=== PATIENT | male | born 1995 | race Caucasian/White ===

== ENCOUNTER 2024-08-06 04:14 | Inpatient (IN) | payer SELFPAY ==
[2024-08-06] VITALS (7 sets, daily range): BP systolic 126–155; BP diastolic 71–91; PULSE 53–84; RESP 16–20; TEMP 36.6–36.9; O2SAT 95–100; BMI 15.8
--- NOTE | 2024-08-06 04:29 | ED_ITS ---
Documented by User: Darryn Madrid DO 08/06/24 05:14 HPI - Altered Mental Status 2 General: Chief Complaint: Altered Mental Status Stated Complaint: 96 Time Seen by Provider: 08/06/24 04:15 History of Present Illness: Patient brought in by police for agitation and aggressiveness and altered mental status. Patient does admit to smoking weed and doing dabs tonight and is under a lot of stress because he works 2 jobs. Patient denied being homicidal or suicidal when expressly asked. The patient is calm and cooperative. The please officer said that his mood will change between being calm and cooperative and being aggressive and agitated to the point of starting to come at him to the point he put him in handcuffs and said in a car where he was banging his head on the window. He also said that his mood flipped and he became very preach he acting and talking about God wanting to pray for everybody that officer stated that the patient said that he wants to kill pedophile in his neighborhood. Related Data Home Medications Medication Instructions Recorded Confirmed No Known Home Medications 08/06/24 08/06/24 Review of Systems 2 General: Reports: 10 or more systems reviewed and unremarkable except in HPI and below Physical Exam 2 Const: COMMON NORMALS: no acute distress, average body habitus, patient oriented x3, no limitations, healthy appearing, alert and well nourished HENMT: COMMON NORMALS: normocephalic, atraumatic, hearing grossly normal bilaterally, external ears normal, Normal external nose present and moist oral mucous membranes HEAD & SCALP: normocephalic and atraumatic NOSE: Normal external nose present EXTERNAL EAR: Yes external ears normal Neck/C-Spine: COMMON NORMALS: no JVD Chest: COMMONS NORMALS: normal inspection of the chest and normal palpation of entire chest wall Resp: COMMON NORMALS: normal respiratory effort, No retractions, No use of accessory muscles and clear to auscultation bilaterally AUSCULTATION: clear to auscultation bilaterally Cardio: COMMON NORMALS: no JVD, regular rate, regular rhythm, S1 normal heart sound present, S2 normal heart sound present, No gallops present (Cardio), No clicks present (Cardio), No murmurs present (Cardio) and No rub (Cardio) R ATE: regular rate RHYTHM: regular rhythm HEART SOUNDS: S1 normal heart sound present and S2 normal heart sound present GI: COMMON NORMALS: Normal to inspection, nondistended, normoactive bowel sounds present, Soft to palpation, non-tender, No hepatosplenomegaly present and no masses PALPATION: Yes Soft to palpation and Yes No hepatosplenomegaly present Neuro: COMMON NORMALS: patient oriented x3 SENSORIUM/ORIENTATION: Yes alert Course 2 Vital Signs: Vital signs: Vital Signs Temperature 98.4 F 08/06/24 04:15 Pulse Rate 80 08/06/24 06:00 Respiratory Rate 16 08/06/24 06:00 Blood Pressure 145/82 08/06/24 06:00 Pulse Oximetry 96 08/06/24 06:00 MDM - Altered Mental Status Lab Data 08/06/24 05:02 08/06/24 05:02 Laboratory Results WBC 6.75 10^3/uL (3.29-11.43) 08/06/24 05:02 RBC 4.55 10^6/uL (3.85-5.65) 08/06/24 05:02 Hgb 14.30 g/dL (11.27-16.99) 08/06/24 05:02 Hct 40.2 % (37-53) 08/06/24 05:02 MCV 88.4 fl (82-101) 08/06/24 05:02 MCH 31.4 pg (27-33) 08/06/24 05:02 MCHC 35.6 g/dL (30-55) 08/06/24 05:02 RDW 12.0 % (12.1-15.1) L 08/06/24 05:02 Plt Count 275 10^3/cmm (157-399) 08/06/24 05:02 MPV 9.4 fL (7.4-10.4) 08/06/24 05:02 Neut % (Auto) 78.2 % 08/06/24 05:02 Lymph % (Auto) 11.9 % 08/06/24 05:02 Sharkey % (Auto) 8.3 % 08/06/24 05:02 Eos % (Auto) 0.1 % 08/06/24 05:02 Baso % (Auto) 1.2 % 08/06/24 05:02 Neut # (Auto) 5.28 10^3/uL (1.8-7.7) 08/06/24 05:02 Lymph # (Auto) 0.8 10^3/uL (0.8-4.8) 08/06/24 05:02 Sharkey # (Auto) 0.6 10^3/uL (0.2-0.9) 08/06/24 05:02 Eos # (Auto) 0.0 10^3/uL (0.0-0.8) 08/06/24 05:02 Baso # (Auto) 0.1 10^3/uL (0.0-0.1) 08/06/24 05:02 Nucleated RBC % (auto) 0 % 08/06/24 05:02 Nucleated RBCs # 0.0 /100WBC 08/06/24 05:02 Sodium 138 mmol/L (136-145) 08/06/24 05:02 Potassium 3.4 mmol/L (3.5-5.1) L 08/06/24 05:02 Chloride 102 mmol/L (98-107) 08/06/24 05:02 Carbon Dioxide 22 mmol/L (22-29) 08/06/24 05:02 Anion Gap 17.4 (5-19) 08/06/24 05:02 BUN 12 mg/dL (6-20) 08/06/24 05:02 Creatinine 0.8 mg/dL (0.7-1.2) 08/06/24 05:02 GFR Calculation 113.5 mL/min (90-130) 08/06/24 05:02 Glucose 128 mg/dL (65-115) H 08/06/24 05:02 Calculated Osmolality 287 mOsm/kg (285-295) 08/06/24 05:02 Calcium 8.8 mg/dL (8.5-10.5) 08/06/24 05:02 Total Bilirubin 1.5 mg/dL (0.15-1.2) H 08/06/24 05:02 AST 47 U/L (0-40) H 08/06/24 05:02 ALT 22 U/L (0-41) 08/06/24 05:02 Alkaline Phosphatase 52 U/L (40-130) 08/06/24 05:02 Total Protein 6.8 g/dL (6.6-8.7) 08/06/24 05:02 Albumin 4.6 g/dL (3.5-5.2) 08/06/24 05:02 Globulin 2.2 g/dL (1.3-4.6) 08/06/24 05:02 Urine Color Yellow (Yellow) 08/06/24 06:20 Urine Appearance Clear (CLEAR) 08/06/24 06:20 Urine pH 6.5 (5-7) 08/06/24 06:20 Ur Specific [place] 1.006 (1.005-1.030) 08/06/24 06:20 Urine Protein Negative (Negative) 08/06/24 06:20 Urine Glucose (UA) Negative (Normal) 08/06/24 06:20 Urine Ketones Negative (Negative) 08/06/24 06:20 Urine Blood Negative (Negative) 08/06/24 06:20 Urine Nitrate Negative (Negative) 08/06/24 06:20 Urine Bilirubin Negative (Negative) 08/06/24 06:20 Urine Urobilinogen 0.2 mg/dL (Negative) 08/06/24 06:20 Ur Leukocyte Esterase Negative (Negative) 08/06/24 06:20 Amorphous Sediment Not Reportable 08/06/24 06:20 Salicylates 0.5 mg/dL (3-10) L 08/06/24 05:02 Urine Opiates Screen Negative ng/mL (Negative) 08/06/24 06:20 Acetaminophen < 5.0 ug/mL (10-30) L 08/06/24 05:02 Ur Barbiturates Screen Negative ng/mL (Negative) 08/06/24 06:20 Ur Phencyclidine Scrn Negative ng/mL (Negative) 08/06/24 06:20 Ur Amphetamines Screen Negative ng/mL (Negative) 08/06/24 06:20 U Benzodiazepines Scrn Negative ng/mL (Negative) 08/06/24 06:20 Urine Cocaine Screen Negative ng/mL (Negative) 08/06/24 06:20 U Marijuana (THC) Screen Positive ng/mL (Negative) H 08/06/24 06:20 Ethyl Alcohol < 10 mg/dL (0-10) 08/06/24 05:02 Discharge Plan Discharge Patient Disposition: Admitted As Inpatient Admit Provider: Deon Rodríguez Clinical Impression: Acute psychosis, Homicidal ideation Condition: Stable Sign Out Sign Out Data: Patient Sign Out occurred on 08/06/24 at 05:54. Patient's care was discussed, and care was transferred from Darryn Madrid DO to Chai Germain DO. Coding Level of Care Code ED [employer] Claim Examiner for [employer] Documented by User: Chai Germain DO 08/06/24 10:39 HPI - Altered Mental Status 2 General: Chief Complaint: Altered Mental Status Stated Complaint: 96 Time Seen by Provider: 08/06/24 04:15 Related Data Home Medications Medication Instructions Recorded Confirmed No Known Home Medications 08/06/24 08/06/24 Course 2 Vital Signs: Vital signs: Vital Signs Temperature 98.4 F 08/06/24 04:15 Pulse Rate 80 08/06/24 06:00 Respiratory Rate 16 08/06/24 06:00 Blood Pressure 145/82 08/06/24 06:00 Pulse Oximetry 96 08/06/24 06:00 MDM - Altered Mental Status Medical Decision Making Care assumed at change of shift. 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 While enforcement was called there was a little bit of confrontation with them. Ultimately EMS was called because of his behavior EMS did not feel comfortable bringing him to the emergency room was transported here by 1 enforcement. 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 When I asked what it happened that he was brought to the emergency room he states he was just working doing God's work. He does admit to having used marijuana. Reviewed case with Dr. Rodríguez will admit from 96-hour hold for acute psychosis and homicidal ideation Lab Data 08/06/24 05:02 08/06/24 05:02 Laboratory Results WBC 6.75 10^3/uL (3.29-11.43) 08/06/24 05:02 RBC 4.55 10^6/uL (3.85-5.65) 08/06/24 05:02 Hgb 14.30 g/dL (11.27-16.99) 08/06/24 05:02 Hct 40.2 % (37-53) 08/06/24 05:02 MCV 88.4 fl (82-101) 08/06/24 05:02 MCH 31.4 pg (27-33) 08/06/24 05:02 MCHC 35.6 g/dL (30-55) 08/06/24 05:02 RDW 12.0 % (12.1-15.1) L 08/06/24 05:02 Plt Count 275 10^3/cmm (157-399) 08/06/24 05:02 MPV 9.4 fL (7.4-10.4) 08/06/24 05:02 Neut % (Auto) 78.2 % 08/06/24 05:02 Lymph % (Auto) 11.9 % 08/06/24 05:02 Sharkey % (Auto) 8.3 % 08/06/24 05:02 Eos % (Auto) 0.1 % 08/06/24 05:02 Baso % (Auto) 1.2 % 08/06/24 05:02 Neut # (Auto) 5.28 10^3/uL (1.8-7.7) 08/06/24 05:02 Lymph # (Auto) 0.8 10^3/uL (0.8-4.8) 08/06/24 05:02 Sharkey # (Auto) 0.6 10^3/uL (0.2-0.9) 08/06/24 05:02 Eos # (Auto) 0.0 10^3/uL (0.0-0.8) 08/06/24 05:02 Baso # (Auto) 0.1 10^3/uL (0.0-0.1) 08/06/24 05:02 Nucleated RBC % (auto) 0 % 08/06/24 05:02 Nucleated RBCs # 0.0 /100WBC 08/06/24 05:02 Sodium 138 mmol/L (136-145) 08/06/24 05:02 Potassium 3.4 mmol/L (3.5-5.1) L 08/06/24 05:02 Chloride 102 mmol/L (98-107) 08/06/24 05:02 Carbon Dioxide 22 mmol/L (22-29) 08/06/24 05:02 Anion Gap 17.4 (5-19) 08/06/24 05:02 BUN 12 mg/dL (6-20) 08/06/24 05:02 Creatinine 0.8 mg/dL (0.7-1.2) 08/06/24 05:02 GFR Calculation 113.5 mL/min (90-130) 08/06/24 05:02 Glucose 128 mg/dL (65-115) H 08/06/24 05:02 Calculated Osmolality 287 mOsm/kg (285-295) 08/06/24 05:02 Calcium 8.8 mg/dL (8.5-10.5) 08/06/24 05:02 Total Bilirubin 1.5 mg/dL (0.15-1.2) H 08/06/24 05:02 AST 47 U/L (0-40) H 08/06/24 05:02 ALT 22 U/L (0-41) 08/06/24 05:02 Alkaline Phosphatase 52 U/L (40-130) 08/06/24 05:02 Total Protein 6.8 g/dL (6.6-8.7) 08/06/24 05:02 Albumin 4.6 g/dL (3.5-5.2) 08/06/24 05:02 Globulin 2.2 g/dL (1.3-4.6) 08/06/24 05:02 Urine Color Yellow (Yellow) 08/06/24 06:20 Urine Appearance Clear (CLEAR) 08/06/24 06:20 Urine pH 6.5 (5-7) 08/06/24 06:20 Ur Specific [place] 1.006 (1.005-1.030) 08/06/24 06:20 Urine Protein Negative (Negative) 08/06/24 06:20 Urine Glucose (UA) Negative (Normal) 08/06/24 06:20 Urine Ketones Negative (Negative) 08/06/24 06:20 Urine Blood Negative (Negative) 08/06/24 06:20 Urine Nitrate Negative (Negative) 08/06/24 06:20 Urine Bilirubin Negative (Negative) 08/06/24 06:20 Urine Urobilinogen 0.2 mg/dL (Negative) 08/06/24 06:20 Ur Leukocyte Esterase Negative (Negative) 08/06/24 06:20 Amorphous Sediment Not Reportable 08/06/24 06:20 Salicylates 0.5 mg/dL (3-10) L 08/06/24 05:02 Urine Opiates Screen Negative ng/mL (Negative) 08/06/24 06:20 Acetaminophen < 5.0 ug/mL (10-30) L 08/06/24 05:02 Ur Barbiturates Screen Negative ng/mL (Negative) 08/06/24 06:20 Ur Phencyclidine Scrn Negative ng/mL (Negative) 08/06/24 06:20 Ur Amphetamines Screen Negative ng/mL (Negative) 08/06/24 06:20 U Benzodiazepines Scrn Negative ng/mL (Negative) 08/06/24 06:20 Urine Cocaine Screen Negative ng/mL (Negative) 08/06/24 06:20 U Marijuana (THC) Screen Positive ng/mL (Negative) H 08/06/24 06:20 Ethyl Alcohol < 10 mg/dL (0-10) 08/06/24 05:02 No radiology studies performed this visit Discharge Plan Discharge Patient Disposition: Admitted As Inpatient Admit Provider: Deon Rodríguez Clinical Impression: Acute psychosis, Homicidal ideation Condition: Stable Sign Out Sign Out Data: Patient Sign Out occurred on 08/06/24 at 05:54. Patient's care was discussed, and care was transferred from Darryn Madrid DO to Chai Germain DO. Coding Level of Care Code ED [employer] Claim Examiner for Saima Lawson
[2024-08-06 05:07] LABS: Basophils # 0.1 10^3/uL (0.0-0.1); Basophils % 1.2 %; Eosinophils % 0.1 %; Hematocrit 40.2 % (37-53); Lymphocytes # 0.8 10^3/uL (0.8-4.8); Lymphocytes % 11.9 %; Mean Corpuscular HGB Conc 35.6 g/dL (30-55); Mean Corpuscular Hemoglobin 31.4 pg (27-33); Mean Corpuscular Volume 88.4 fl (82-101); Mean Platelet Volume 9.4 fL (7.4-10.4); Monocytes # 0.6 10^3/uL (0.2-0.9); Monocytes % 8.3 %; Neutrophils # 5.28 10^3/uL (1.8-7.7); Neutrophils % 78.2 %; Nucleated Red Blood Cells % 0 %; Platelet Count 275 10^3/cmm (157-399); Red Blood Count 4.55 10^6/uL (3.85-5.65); White Blood Count 6.75 10^3/uL (3.29-11.43)
[2024-08-06] MEDS: sodium chloride 0.9% 1,000 ML 999 ML IV (05:07)
[2024-08-06 05:26] LABS: Alanine Aminotransferase 22 U/L (0-41); Albumin Level 4.6 g/dL (3.5-5.2); Alkaline Phosphatase 52 U/L (40-130); Anion Gap 17.4 (5-19); Aspartate Amino Transferase 47 U/L (0-40); Blood Urea Nitrogen 12 mg/dL (6-20); Calcium 8.8 mg/dL (8.5-10.5); Carbon Dioxide 22 mmol/L (22-29); Chloride 102 mmol/L (98-107); Creatinine Clr Calc Pharmacy 103.9481; Globulin 2.2 g/dL (1.3-4.6); Glomerular Filtration Rate 113.5 mL/min (90-130); Glucose 128 mg/dL (65-115); Osmolality Calculated 287 mOsm/kg (285-295); Potassium 3.4 mmol/L (3.5-5.1); Salicylate 0.5 mg/dL (3-10); Sodium 138 mmol/L (136-145); Total Bilirubin 1.5 mg/dL (0.15-1.2); Total Protein 6.8 g/dL (6.6-8.7)
[2024-08-06 05:31] LABS: Acetaminophen < 5.0 ug/mL (10-30); Alcohol Level < 10 mg/dL (0-10)
[2024-08-06 06:31] LABS: Charge for UA Resulting for Rev
[2024-08-06 06:33] LABS: Bilirubin Urine Negative (Negative); Blood Urine Negative (Negative); Glucose Urine UA Negative (Normal); Ketones Urine Negative (Negative); Leukocyte Esterase Urine Negative (Negative); Nitrate Urine Negative (Negative); Protein Urine Negative (Negative); Specific Gravity, Urine 1.006 (1.005-1.030); Urine Appearance Clear (CLEAR); Urine Color Yellow (Yellow); Urobilinogen Urine 0.2 mg/dL (Negative); pH Urine 6.5 (5-7)
[2024-08-06 06:48] LABS: Amphetamines Screen Urine Negative (Negative); Barbiturates Screen Urine Negative (Negative); Benzodiazepines Screen Urine Negative (Negative); Cocaine Screen Urine Negative (Negative); Opiate Screen Urine Negative (Negative); PCP Screen Urine Negative (Negative); THC Screen Urine Positive (Negative)
--- NOTE | 2024-08-06 07:32 | PC.PHAR ---
No external medications found. Mom does not answer phone-left message to ask about meds, pharmacy, allergies. will follow up
--- NOTE | 2024-08-06 10:40 | PC.NURSE ---
pt resting in room 9, calm and cooperative. respirations even and unlabored. pt IV removed, catheter intact.
--- NOTE | 2024-08-06 12:02 | PC.NURSE ---
Patient arrived to the unit with security at 1109. Patient cooperative during assessment. Patient denies suicidal ideation, but endorses previous suicidal ideation years ago when his cheated on him. Patient appears to be psychotic, with shinto grandiose thoughts. Patient denies drug aside from marijuana use.
[2024-08-06] MEDS: nicotine 2 mg Gum BUCCAL ×2 (16:54→20:47)
--- NOTE | 2024-08-06 18:58 | PC.NURSE ---
96 hr rights reviewed with patient @1050 with assistance of [facility] seal delivery vehicle officer Casey. No verbalized questions or concerns to HS at this time. Patient copy was left with patient.
[2024-08-07 06:00] VITALS: BP 119/74; PULSE 58; RESP 18; TEMP 36.7; O2SAT 99
--- NOTE | 2024-08-07 06:35 | W.PM.NPUH&PS ---
Providers/Chief Complaint Admitting Physician: Deon Rodírguez MD Chief Complaint: 96 HPI NPU History of Present Illness Aurelio Neville is a 29 year old male who presented to the emergency department with the following report: Chief Complaint: Altered Mental Status Stated Complaint: 96 Time Seen by Provider: 08/06/24 04:15 History of Present Illness: Patient brought in by police for agitation and aggressiveness and altered mental status. Patient does admit to smoking weed and doing dabs tonight and is under a lot of stress because he works 2 jobs. Patient denied being homicidal or suicidal when expressly asked. The patient is calm and cooperative. The please officer said that his mood will change between being calm and cooperative and being aggressive and agitated to the point of starting to come at him to the point he put him in handcuffs and said in a car where he was banging his head on the window. He also said that his mood flipped and he became very preach he acting and talking about God wanting to pray for everybody that officer stated that the patient said that he wants to kill pedophile in his neighborhood. He was admitted to the neuropsychiatric unit for definitive treatment of those issues. He is unknown to [facility] psychiatry through inpatient or outpatient services. His UDS was positive for cannabis and he presented reporting: Chief complaint The patient came to the hospital because he feels a strong calling to work for God, which has led to some disturbances in his life. History of the present complaint The patient presented with a strong confucianism conviction, expressing a desire to work for God and to become a Baptism therapist. He reported no previous psychiatric hospitalizations or therapy sessions. He has not been on any medication for mental health, but admitted to using cannabis occasionally to help with his feelings. He reported that cannabis makes him feel too high and he expressed a desire to cut back on its use. The patient also reported a history of tobacco use, smoking about two cigarettes a day, but expressed a desire to quit. He denied any alcohol use and use of other drugs such as cocaine, methamphetamine, and opiates. He has never been to a rehab and has no history of DUI charges. The patient reported a past experience of depression following a divorce. He described the divorce as the worst thing in his life as he had waited a long time to get and thought he had done it the right way. He reported that he discovered his had cheated on him three months after their wedding, which led to the end of their marriage. He moved in with a friend in [place] after the divorce and turned to christianity for solace. The patient denied any issues with anxiety, paranoia, hearing voices, or seeing things. He also denied having nightmares or flashbacks about bad things that have happened in the past. He described himself as a people person and expressed a desire to help others. The patient reported a desire to improve his life and take care of his family. He recently got a job at a [place] [employer] home and moved to [place] to live with his mother and stepfather. He expressed frustration about being misunderstood when he talks about his confucianism beliefs, which has led to him being picked up by the police for disturbing the peace. The patient reported no physical medical issues, no history of broken bones, and only one surgery to remove his appendix a couple of years ago. He denied any current thoughts of self-harm or harm to others and denied feeling paranoid. The patient was offered a small dose of Abilify to help manage his symptoms. He initially expressed hesitation about taking medication, citing a belief that cannabis is God's medicine and that other medications are man-made . However, after some discussion, he agreed to try the medication. Mental health history The patient has never been in a psychiatric hospital before and has never been on medication for mental health. He has tried cannabis to help with his feelings. He has never been to a therapist but expresses a desire to do so. He has a history of depression following a divorce. Social history The patient has a history of cannabis and tobacco use, smoking about two cigarettes a day. He does not consume alcohol. He has a job at a [place] [employer] home and enjoys cooking. He has a strong Baptism janice and feels a calling to [employer]. He lives with his mother and stepfather. Meds NPU Home Medications Medication Instructions Recorded Confirmed Last Taken Type No Known Home Medications 08/06/24 08/06/24 Unknown History Allergies Allergy/AdvReac Type Severity Reaction Status Date / Time No Known Allergies Allergy Verified 08/06/24 12:56 Mental Status Exam MSE Comments: This is an underweight, cachectic white male, in hospital scrubs, with limited grooming, and intense eye contact. No abnormal movements except for mild psychomotor retardation. Mostly cooperative with exam in significant distress. Speech was slightly decreased rate and volume. Occasionally having whispering towards having. Mood described as okay; affect subdued. Thought process, linear. Thought content: patient denied any suicidal or homicidal ideation, there were no delusions reported but paranoia, grandiose and some bizarre delusions noted, patient denied any auditory or visual hallucinations but appeared at times to be attending to internal stimuli. The patient does not report progress follow any suicidal risk, thoughts of violence or aggression against others, restlessness, irritability, visual hallucinations, or paranoia. He does experience occasional anxiety. He does not report hearing voices or seeing things. He does not have nightmares or flashbacks about bad things that have happened in the past. Attention, concentration, and memory appear limited but were not formally tested. He is alert and oriented to person. Insight and judgment and impulse control are impaired. Vitals/I&O/Wt Last Vital Signs Temp 98.2 F 08/06/24 13:47 Pulse 61 08/06/24 19:54 Resp 18 08/06/24 19:54 BP 126/77 08/06/24 19:54 Pulse Ox 100 08/06/24 19:54 O2 Del Method Room Air 08/06/24 13:47 08/06/24 08/06/24 08/07/24 14:59 22:59 06:59 Intake Total 1000 / 1000 Balance 1000 / 1000 Weight last 48 hrs Weight 54.431 kg Data NPU 08/06/24 05:02 08/06/24 05:02 A&P Assessment and plan (1) Acute psychosis: (2) Homicidal ideation: (3) Cannabis use disorder, severe, dependence: (4) Cannabis-induced psychotic disorder with delusions: Plan This is a 29-year-old white male who presented denying significant mental health history or treatment but does report similar episodes and marijuana use with possible sequela of being hyper confucianism. The patient appears to be struggling with his strong confucianism beliefs and how they intersect with his daily life and how these beliefs seem to get heightened or intensified sometimes when he smokes weed. He has a history of depression and occasional anxiety. He has a history of substance use, specifically cannabis and tobacco. 1. Consider antipsychotic. Will start Abilify 5 mg p.o. daily and increase as indicated. 2. Continue every 15 minute checks for safety. 3. Encourage individual, group and milieu therapies. 4. Obtain collateral information on what his baseline actually is. 5. Encourage sober living treatment after discharge at the highest level of care to which he is willing to commit. Involuntary Hold Information 96 Hour Hold: 96 Hour Involuntary Admission: Yes 96 Hour Hold Ending Date: 08/12/24 96 Hour Hold Ending Time: 10:00 Attestations NPU Medical Necessity Statement*: Inpatient hospitalization is medically necessary and the clinically appropriate intervention at this time. We will monitor medication to make changes as indicated. Patient will be in the hospital for over two midnights. His likely length of stay 5-7 days. Coding Level of Care Code Acute Code for [facility] Diagnoses Acute psychosis F23 Homicidal ideation R45.850 Cannabis use disorder, severe, dependence F12.20 Cannabis-induced psychotic disorder with delusions F12.950
[2024-08-07] MEDS: nicotine 2 mg Gum BUCCAL ×4 (09:50→18:30)
[2024-08-07] MEDS: ARIPiprazole 10 mg Tablet 5 MG PO (13:09)
[2024-08-07 14:00] VITALS: BP 129/79; PULSE 66; RESP 16; TEMP 36.8; O2SAT 100
[2024-08-07 19:46] VITALS: BP 131/86; PULSE 62; RESP 18; TEMP 36.4; O2SAT 100
[2024-08-08 06:00] VITALS: BP 119/77; PULSE 82; RESP 18; TEMP 36.5; O2SAT 99
[2024-08-08] MEDS: ARIPiprazole 10 mg Tablet 5 MG PO (08:11)
[2024-08-08] MEDS: nicotine 21 mg Patch 1 PATCH TRANSDERMA (08:12)
--- NOTE | 2024-08-08 09:00 | P.NPUPN_ITS ---
Subjective NPU 2 Subjective: Patient presented today reporting that he is doing okay with the Abilify. We discussed finding out that his brother takes it is well and that it is very helpful for him. He reports that he did not have any problem with the way he was feeling and denied any specific side effects to the medication. He continues to have some hyper oriental orthodox behaviors per staff reports and direct observation. We discussed the likelihood of increasing the Abilify to 10 mg tomorrow. Mental Status Exam 2 MSE Comments: This is an underweight, cachectic white male, in hospital scrubs, with limited grooming, and intense eye contact. No abnormal movements except for mild psychomotor retardation. Mostly cooperative with exam in significant distress. Speech was slightly decreased rate and volume. Occasionally having whispering towards the keny or God. Mood described as okay; affect subdued. Thought process, linear. Thought content: patient denied any suicidal or homicidal ideation, there were no delusions reported but paranoia, grandiose and some bizarre delusions noted, patient denied any auditory or visual hallucinations but appeared at times to be attending to internal stimuli. The patient does not report progress follow any suicidal risk, thoughts of violence or aggression against others, restlessness, irritability, visual hallucinations, or paranoia. He does experience occasional anxiety. He does not report hearing voices or seeing things. He does not have nightmares or flashbacks about bad things that have happened in the past. Attention, concentration, and memory appear limited but were not formally tested. He is alert and oriented to person. Insight and judgment and impulse control are impaired. Vitals/I&O/Wt Last Vital Signs Temp 97.7 F 08/08/24 06:00 Pulse 82 08/08/24 06:00 Resp 18 08/08/24 06:00 BP 119/77 08/08/24 06:00 Pulse Ox 99 08/08/24 06:00 O2 Del Method Room Air 08/08/24 06:00 Weight last 48 hrs Weight 57.209 kg Data NPU 08/06/24 05:02 08/06/24 05:02 A&P Assessment and plan (1) Acute psychosis: (2) Homicidal ideation: (3) Cannabis use disorder, severe, dependence: (4) Cannabis-induced psychotic disorder with delusions: Plan This is a 29-year-old white male who presented denying significant mental health history or treatment but does report similar episodes and marijuana use with possible sequela of being hyper oriental orthodox. The patient appears to be struggling with his strong oriental orthodox beliefs and how they intersect with his daily life and how these beliefs seem to get heightened or intensified sometimes when he smokes weed. He has a history of depression and occasional anxiety. He has a history of substance use, specifically cannabis and tobacco. 1. Consider antipsychotic. Started Abilify 5 mg p.o. daily and increase as indicated. 2. Continue every 15 minute checks for safety. 3. Encourage individual, group and milieu therapies. 4. Obtain collateral information on what his baseline actually is. 5. Encourage sober living treatment after discharge at the highest level of care to which he is willing to commit. Involuntary Hold Information 2 96 Hour Hold: 96 Hour Involuntary Admission: Yes 96 Hour Hold Ending Date: 08/12/24 96 Hour Hold Ending Time: 10:00 Attestations NPU 2 Medical Necessity Statement*: Inpatient hospitalization is medically necessary and the clinically appropriate intervention at this time. We will monitor medication to make changes as indicated.His likely length of stay 5-7 days. Coding Level of Care Code Acute Code for [facility] Fwd Diagnoses Acute psychosis F23 Homicidal ideation R45.850 Cannabis use disorder, severe, dependence F12.20 Cannabis-induced psychotic disorder with delusions F12.950
--- NOTE | 2024-08-08 10:47 | PC.NURSE ---
Pt kneeling down to pray with another pt, pt began to cry, pt reading bible and is calm now.
[2024-08-08 14:00] VITALS: BP 154/93; PULSE 70; RESP 16; TEMP 36.6; O2SAT 100
--- NOTE | 2024-08-08 15:29 | PC.NURSE ---
Pt has asked this nurse 3 times throughout this shift, if he has taken his medication. Pt was administered medication at 0830 AM.
[2024-08-08 19:59] VITALS: BP 151/89; PULSE 107; RESP 17; TEMP 36.8; O2SAT 99
[2024-08-08] MEDS: trazodone 50 mg Tablet PO (20:03)
[2024-08-09 06:00] VITALS: BP 127/80; PULSE 112; RESP 17; TEMP 36.4; O2SAT 95
[2024-08-09] MEDS: ARIPiprazole 10 mg Tablet PO (08:32)
[2024-08-09] MEDS: nicotine 2 mg Gum BUCCAL ×2 (08:50→19:29)
[2024-08-09] MEDS: ondansetron 4 MG Tablet PO (10:30)
--- NOTE | 2024-08-09 11:14 | PC.NURSE ---
pt mother called stating her concern that Aurelio will be upset when he finds out that his 96hour hold will not be up tomorrow. she is concerned that he might blame her because she had told him it would be up tomorrow. Explained to pt that staff would educate the pt on how the 96 hour hold works in the state of [place]. and that we would educate him in as gentle manner as we could and make pt understand that she did not know the laws pertaining to the 96 hour holds in [place]. Reassured pt mother pt would be ok. but the concern is that the pt states that once out of the hospital pt is stating he will not take any medications. pt states he was happy without medication before coming into the hospital and will be happy again once out of the hospital with out any medication. when asked why pt would stop taking medication pt stated it makes him sleepy, verbal education administered that after taking medication for period of time medication would no longer make him sleepy that pt needs to give the medication a chance even though right now it makes him sleepy. pt mother states yes this is what he is saying to me as well but it is making him sleepy and he does not like that. pt mother asked for supportive employment case manager or director social or doctor to call at their continence.
[2024-08-09 14:00] VITALS: BP 132/89; PULSE 78; RESP 16; TEMP 36.7; O2SAT 98
[2024-08-09 19:18] VITALS: BP 128/81; PULSE 104; RESP 18; TEMP 36.7; O2SAT 98
--- NOTE | 2024-08-09 20:07 | P.NPUPN_ITS ---
Subjective NPU 2 Subjective: Patient presented today reporting that he is doing okay with the increase in medication. He denied any side effects to the medication. He continues to be somewhat disconnected from the hospitalization and how he is interacting per staff reports and direct observation but he denied having any significant concerns about being here at this time. We continued to talk about long-term treatment but he is somewhat ambivalent about the process. Mental Status Exam 2 MSE Comments: This is an underweight, cachectic white male, in hospital scrubs, with limited grooming, and intense eye contact. No abnormal movements except for mild psychomotor retardation. Mostly cooperative with exam in significant distress. Speech was slightly decreased rate and volume. Occasionally having whispering towards the keny or God. Mood described as okay; affect subdued. Thought process, linear. Thought content: patient denied any suicidal or homicidal ideation, there were no delusions reported but paranoia, grandiose and some bizarre delusions noted, patient denied any auditory or visual hallucinations but appeared at times to be attending to internal stimuli. The patient does not report progress follow any suicidal risk, thoughts of violence or aggression against others, restlessness, irritability, visual hallucinations, or paranoia. He does experience occasional anxiety. He does not report hearing voices or seeing things. He does not have nightmares or flashbacks about bad things that have happened in the past. Attention, concentration, and memory appear limited but were not formally tested. He is alert and oriented to person. Insight and judgment and impulse control are impaired. Vitals/I&O/Wt Last Vital Signs Temp 98.0 F 08/09/24 19:18 Pulse 104 H 08/09/24 19:18 Resp 18 08/09/24 19:18 BP 128/81 08/09/24 19:18 Pulse Ox 98 08/09/24 19:18 O2 Del Method Room Air 08/09/24 19:18 Weight last 48 hrs Weight 57.209 kg Data NPU 08/06/24 05:02 08/06/24 05:02 A&P Assessment and plan (1) Acute psychosis: (2) Homicidal ideation: (3) Cannabis use disorder, severe, dependence: (4) Cannabis-induced psychotic disorder with delusions: Plan This is a 29-year-old white male who presented denying significant mental health history or treatment but does report similar episodes and marijuana use with possible sequela of being hyper christianity. The patient appears to be struggling with his strong christianity beliefs and how they intersect with his daily life and how these beliefs seem to get heightened or intensified sometimes when he smokes weed. He has a history of depression and occasional anxiety. He has a history of substance use, specifically cannabis and tobacco. 1. Consider antipsychotic. Started Abilify 5 mg p.o. daily. Increased to 10 mg p.o. daily. 2. Continue every 15 minute checks for safety. 3. Encourage individual, group and milieu therapies. 4. Obtain collateral information on what his baseline actually is. 5. Encourage sober living treatment after discharge at the highest level of care to which he is willing to commit. Involuntary Hold Information 2 96 Hour Hold: 96 Hour Involuntary Admission: Yes 96 Hour Hold Ending Date: 08/12/24 96 Hour Hold Ending Time: 10:00 Attestations NPU 2 Medical Necessity Statement*: Inpatient hospitalization is medically necessary and the clinically appropriate intervention at this time. We will monitor medication to make changes as indicated.His likely length of stay 4-6 days. Coding Level of Care Code Acute Code for [facility] Fwd Diagnoses Acute psychosis F23 Homicidal ideation R45.850 Cannabis use disorder, severe, dependence F12.20 Cannabis-induced psychotic disorder with delusions F12.950
[2024-08-10 06:00] VITALS: BP 129/85; PULSE 81; RESP 16; TEMP 36.3; O2SAT 100
[2024-08-10] MEDS: ARIPiprazole 10 mg Tablet PO (08:28)
[2024-08-10 14:00] VITALS: BP 125/87; PULSE 83; RESP 16; TEMP 36.5; O2SAT 99
--- NOTE | 2024-08-10 17:53 | P.NPUPN_ITS ---
Subjective NPU 2 Subjective: Patient presented today reporting that he is doing okay with the medication. We discussed the need for him to stay longer and thus see some greater improvement in his psychotic symptoms. We discussed the fact that we put in a 21-day hold request. He denied any side effects to the medication. Mental Status Exam 2 MSE Comments: This is an underweight, cachectic white male, in hospital scrubs, with limited grooming, and intense eye contact. No abnormal movements except for mild psychomotor retardation. Mostly cooperative with exam in significant distress. Speech was slightly decreased rate and volume. Occasionally having whispering towards the keny or God. Mood described as okay; affect subdued. Thought process, linear. Thought content: patient denied any suicidal or homicidal ideation, there were no delusions reported but paranoia, grandiose and some bizarre delusions noted, patient denied any auditory or visual hallucinations but appeared at times to be attending to internal stimuli. The patient does not report progress follow any suicidal risk, thoughts of violence or aggression against others, restlessness, irritability, visual hallucinations, or paranoia. He does experience occasional anxiety. He does not report hearing voices or seeing things. He does not have nightmares or flashbacks about bad things that have happened in the past. Attention, concentration, and memory appear limited but were not formally tested. He is alert and oriented to person. Insight and judgment and impulse control are impaired. Vitals/I&O/Wt Last Vital Signs Temp 97.7 F 08/10/24 14:00 Pulse 83 08/10/24 14:00 Resp 16 08/10/24 14:00 BP 125/87 08/10/24 14:00 Pulse Ox 99 08/10/24 14:00 O2 Del Method Room Air 08/10/24 14:00 Data NPU 08/06/24 05:02 08/06/24 05:02 A&P Assessment and plan (1) Acute psychosis: (2) Homicidal ideation: (3) Cannabis use disorder, severe, dependence: (4) Cannabis-induced psychotic disorder with delusions: Plan This is a 29-year-old white male who presented denying significant mental health history or treatment but does report similar episodes and marijuana use with possible sequela of being hyper restorationism. The patient appears to be struggling with his strong restorationism beliefs and how they intersect with his daily life and how these beliefs seem to get heightened or intensified sometimes when he smokes weed. He has a history of depression and occasional anxiety. He has a history of substance use, specifically cannabis and tobacco. 1. Consider antipsychotic. Started Abilify 5 mg p.o. daily. Increased to 10 mg p.o. daily. 2. Continue every 15 minute checks for safety. 3. Encourage individual, group and milieu therapies. 4. Obtain collateral information on what his baseline actually is. 5. Encourage sober living treatment after discharge at the highest level of care to which he is willing to commit. 6. Filed for 21-day hold. Involuntary Hold Information 2 96 Hour Hold: 96 Hour Involuntary Admission: Yes 96 Hour Hold Ending Date: 08/12/24 96 Hour Hold Ending Time: 10:00 Attestations NPU 2 Medical Necessity Statement*: Inpatient hospitalization is medically necessary and the clinically appropriate intervention at this time. We will monitor medication to make changes as indicated.His likely length of stay 3-5 days. Coding Level of Care Code Acute Code for [facility] Diagnoses Acute psychosis F23 Homicidal ideation R45.850 Cannabis use disorder, severe, dependence F12.20 Cannabis-induced psychotic disorder with delusions F12.950
[2024-08-10] MEDS: nicotine 2 mg Gum BUCCAL (18:07)
[2024-08-10 19:07] VITALS: BP 125/85; PULSE 93; RESP 18; TEMP 36.4; O2SAT 100
[2024-08-11 06:00] VITALS: BP 121/83; PULSE 74; RESP 18; TEMP 36.9; O2SAT 99
--- NOTE | 2024-08-11 07:29 | P.NPUPN_ITS ---
Subjective NPU 2 Subjective: Patient presented today reporting that he is doing okay. He is pleased with the idea of changing his medication to bedtime. He continues to struggle with hyperreligious delusions per his report as well as staff observation. He continues to report wanting to avoid cannabis and we discussed the 21-day hold hearing being in place to assist him in getting well enough to return home which is his family's desire as well. He denied any side effects of the medic other than daytime sleepiness. Mental Status Exam 2 MSE Comments: This is an underweight, cachectic white male, in hospital scrubs, with limited grooming, and intense eye contact. No abnormal movements except for mild psychomotor retardation. Mostly cooperative with exam in significant distress. Speech was slightly decreased rate and volume. Occasionally having whispering towards the keny or God. Mood described as okay; affect subdued. Thought process, linear. Thought content: patient denied any suicidal or homicidal ideation, there were no delusions reported but paranoia, grandiose and some bizarre delusions noted, patient denied any auditory or visual hallucinations but appeared at times to be attending to internal stimuli. Attention, concentration, and memory appear limited but were not formally tested. He is alert and oriented to person. Insight and judgment and impulse control are impaired. Vitals/I&O/Wt Last Vital Signs Temp 98.5 F 08/11/24 06:00 Pulse 74 08/11/24 06:00 Resp 18 08/11/24 06:00 BP 121/83 08/11/24 06:00 Pulse Ox 99 08/11/24 06:00 O2 Del Method Room Air 08/11/24 06:00 Data NPU 08/06/24 05:02 08/06/24 05:02 A&P Assessment and plan (1) Acute psychosis: (2) Homicidal ideation: (3) Cannabis use disorder, severe, dependence: (4) Cannabis-induced psychotic disorder with delusions: Plan This is a 29-year-old white male who presented denying significant mental health history or treatment but does report similar episodes and marijuana use with possible sequela of being hyper uatsdin. The patient appears to be struggling with his strong uatsdin beliefs and how they intersect with his daily life and how these beliefs seem to get heightened or intensified sometimes when he smokes weed. He has a history of depression and occasional anxiety. He has a history of substance use, specifically cannabis and tobacco. 1. Consider antipsychotic. Started Abilify 5 mg p.o. daily. Increased to 10 mg p.o. daily. And switch to bedtime. 2. Continue every 15 minute checks for safety. 3. Encourage individual, group and milieu therapies. 4. Obtain collateral information on what his baseline actually is. 5. Encourage sober living treatment after discharge at the highest level of care to which he is willing to commit. 6. Filed for 21-day hold. Hearing tomorrow at 1315. Involuntary Hold Information 2 96 Hour Hold: 96 Hour Involuntary Admission: Yes 96 Hour Hold Ending Date: 08/12/24 96 Hour Hold Ending Time: 10:00 Attestations NPU 2 Medical Necessity Statement*: Inpatient hospitalization is medically necessary and the clinically appropriate intervention at this time. We will monitor medication to make changes as indicated.His likely length of stay 3-5 days. Coding Level of Care Code Acute Code for [facility] Diagnoses Acute psychosis F23 Homicidal ideation R45.850 Cannabis use disorder, severe, dependence F12.20 Cannabis-induced psychotic disorder with delusions F12.950
[2024-08-11] MEDS: ARIPiprazole 10 mg Tablet PO (08:12)
[2024-08-11 14:00] VITALS: BP 141/90; PULSE 81; RESP 16; TEMP 36.6; O2SAT 98
[2024-08-11] MEDS: nicotine 2 mg Gum BUCCAL (20:14)
[2024-08-11] MEDS: hyDROXYzine 25 mg Capsule 50 MG PO (20:14)
[2024-08-11 20:24] VITALS: BP 128/89; PULSE 84; RESP 18; TEMP 36.4; O2SAT 99
[2024-08-12 06:00] VITALS: BP 134/92; PULSE 71; RESP 16; TEMP 36.3; O2SAT 100
[2024-08-12] MEDS: hyDROXYzine 25 mg Capsule 50 MG PO ×2 (09:18→16:00)
--- NOTE | 2024-08-12 09:33 | PC.NURSE ---
PT CURRENTLY DENIES SI/HI/AH/VH. PT CURRENTLY DENIES DEPRESSION. PT ENDORSES SOME ANXIETY OVER HIS COURT HEARING TODAY. PT STATES I'M READY, I KNOW IT IS ANOTHER STEP SO I AM HAPPY ABOUT THAT BUT I AM JUST A LITTLE ANXIOUS. PT APPEARS ELATED. PT DID NOT STOP SMILING THROUGHOUT THE ASSESSMENT. PT WAS COOPERATIVE. PT CURRENT NEEDS ARE MET AT THIS TIME.
[2024-08-12] MEDS: nicotine 2 mg Gum BUCCAL ×2 (12:32→16:02)
[2024-08-12 14:00] VITALS: BP 152/94; PULSE 84; RESP 17; O2SAT 99
--- NOTE | 2024-08-12 15:16 | W.PM.NPUPNS ---
Subjective NPU Subjective: Patient presented today reporting that he is desiring to discharge with his parents. We discussed the challenges that we feel still remain in need to be addressed before discharge. He went to his hearing and the 21-day hold was upheld. He wanted to know more about the injection but resistant to the injection anyway consistent with his resistance to medication and generalized concepts. He has continued to take the medication as prescribed. He denied any specific side effects to the medication. Mental Status Exam MSE Comments: This is an underweight, cachectic white male, in hospital scrubs, with limited grooming, and intense eye contact. No abnormal movements except for mild psychomotor retardation. Mostly cooperative with exam in significant distress. Speech was slightly decreased rate and volume. Occasionally having whispering towards the keny or God. Mood described as okay; affect subdued. Thought process, linear. Thought content: patient denied any suicidal or homicidal ideation, there were no delusions reported but paranoia, grandiose and some bizarre delusions noted, patient denied any auditory or visual hallucinations but appeared at times to be attending to internal stimuli. Attention, concentration, and memory appear limited but were not formally tested. He is alert and oriented to person. Insight and judgment and impulse control are impaired. Vitals/I&O/Wt Last Vital Signs Temp 97.7 F 08/12/24 19:39 Pulse 85 08/12/24 19:39 Resp 18 08/12/24 19:39 BP 124/76 08/12/24 19:39 Pulse Ox 99 08/12/24 19:39 O2 Del Method Room Air 08/12/24 06:00 Data NPU 08/06/24 05:02 08/06/24 05:02 A&P Assessment and plan (1) Acute psychosis: (2) Homicidal ideation: (3) Cannabis use disorder, severe, dependence: (4) Cannabis-induced psychotic disorder with delusions: Plan This is a 29-year-old white male who presented denying significant mental health history or treatment but does report similar episodes and marijuana use with possible sequela of being hyper cheondoism. The patient appears to be struggling with his strong cheondoism beliefs and how they intersect with his daily life and how these beliefs seem to get heightened or intensified sometimes when he smokes weed. He has a history of depression and occasional anxiety. He has a history of substance use, specifically cannabis and tobacco. 1. Consider antipsychotic. Started Abilify 5 mg p.o. daily. Increased to 10 mg p.o. daily. And switched to bedtime. Will switch to 15 mg and consider long-acting injectable. 2. Continue every 15 minute checks for safety. 3. Encourage individual, group and milieu therapies. 4. Obtain collateral information on what his baseline actually is. 5. Encourage sober living treatment after discharge at the highest level of care to which he is willing to commit. 6. Filed for 21-day hold. Hearing today at 1315. 21-day hold granted Involuntary Hold Information 96 Hour Hold: 96 Hour Involuntary Admission: Yes 96 Hour Hold Ending Date: 08/12/24 96 Hour Hold Ending Time: 10:00 Attestations NPU Medical Necessity Statement*: Inpatient hospitalization is medically necessary and the clinically appropriate intervention at this time. We will monitor medication to make changes as indicated.His likely length of stay 3-5 days. Coding Level of Care Code Acute Code for [facility] Diagnoses Acute psychosis F23 Homicidal ideation R45.850 Cannabis use disorder, severe, dependence F12.20 Cannabis-induced psychotic disorder with delusions F12.950
[2024-08-12 19:39] VITALS: BP 124/76; PULSE 85; RESP 18; TEMP 36.5; O2SAT 99
[2024-08-12] MEDS: ARIPiprazole 10 mg Tablet PO (20:01)
[2024-08-13 06:00] VITALS: BP 124/86; PULSE 70; RESP 17; TEMP 36.4; O2SAT 100
[2024-08-13] MEDS: hyDROXYzine 25 mg Capsule 50 MG PO (07:48)
[2024-08-13] MEDS: OLANZapine 5 mg ODT PO (13:12)
[2024-08-13 14:00] VITALS: BP 120/74; PULSE 74; RESP 16; TEMP 37; O2SAT 96
--- NOTE | 2024-08-13 14:22 | PC.NURSE ---
pt believes his roomate is out to get him. that he is slamming the door purposely to him wake up. then following him into dayroom pt came to nurses station stating he does not feel safe and that he needs to leave. pt states he does not believe he needs to be here he is not schizophrenic that he does not need to be taking any medications, all he wants to be taking is a little pot not 14 medications that he is taking now, also pt stated that he is freaking out because of all of the people here and that he can read energy and feels he needs to fix everyones problems. pt also stated that he is his parents care givers and if anything happens to them in the next 21 days he is going to hire an president + publisher and toshia this place because he just found out that he is on a 21 day hold yesterday and the doctor doesnt care.this seismology technical officer explained to patient that most of the medications he is on are only as needed medication med and he will not be taking them when he goes home. pt continues to repeat above statement. pt walks to his room.
--- NOTE | 2024-08-13 15:23 | PC.NURSE ---
pt in room crying stating he is scared to and that he does not need to be here.
--- NOTE | 2024-08-13 16:51 | P.NPUPN_ITS ---
Subjective NPU 2 Subjective: Patient presented today reporting that he is doing okay. He is managing the 21- day hold as best as possible. We discussed likely increasing his Abilify and began discussions about the possibility of the long-acting injectable. He denied any side effects to the medication. Mental Status Exam 2 MSE Comments: This is an underweight, cachectic white male, in hospital scrubs, with limited grooming, and intense eye contact. No abnormal movements except for mild psychomotor retardation. Mostly cooperative with exam in significant distress. Speech was slightly decreased rate and volume. Occasionally having whispering towards the keny or God. Mood described as okay; affect subdued. Thought process, linear. Thought content: patient denied any suicidal or homicidal ideation, there were no delusions reported but paranoia, grandiose and some bizarre delusions noted, patient denied any auditory or visual hallucinations but appeared at times to be attending to internal stimuli. Attention, concentration, and memory appear limited but were not formally tested. He is alert and oriented to person. Insight and judgment and impulse control are impaired. Vitals/I&O/Wt Last Vital Signs Temp 98.6 F 08/13/24 14:00 Pulse 74 08/13/24 14:00 Resp 16 08/13/24 14:00 BP 120/74 08/13/24 14:00 Pulse Ox 96 08/13/24 14:00 O2 Del Method Room Air 08/13/24 14:00 Data NPU 08/06/24 05:02 08/06/24 05:02 A&P Assessment and plan (1) Acute psychosis: (2) Homicidal ideation: (3) Cannabis use disorder, severe, dependence: (4) Cannabis-induced psychotic disorder with delusions: Plan This is a 29-year-old white male who presented denying significant mental health history or treatment but does report similar episodes and marijuana use with possible sequela of being hyper episcopal. The patient appears to be struggling with his strong episcopal beliefs and how they intersect with his daily life and how these beliefs seem to get heightened or intensified sometimes when he smokes weed. He has a history of depression and occasional anxiety. He has a history of substance use, specifically cannabis and tobacco. 1. Consider antipsychotic. Started Abilify 5 mg p.o. daily. Increased to 10 mg p.o. daily. And switched to bedtime. Will switch to 15 mg and consider long-acting injectable. 2. Continue every 15 minute checks for safety. 3. Encourage individual, group and milieu therapies. 4. Obtain collateral information on what his baseline actually is. 5. Encourage sober living treatment after discharge at the highest level of care to which he is willing to commit. 6. Filed for 21-day hold. Hearing today at 1315. 21-day hold granted Involuntary Hold Information 2 96 Hour Hold: 96 Hour Involuntary Admission: Yes 96 Hour Hold Ending Date: 08/12/24 96 Hour Hold Ending Time: 10:00 Attestations NPU 2 Medical Necessity Statement*: Inpatient hospitalization is medically necessary and the clinically appropriate intervention at this time. We will monitor medication to make changes as indicated.His likely length of stay 3-5 days. Coding Level of Care Code Acute Code for [facility] Fwd Diagnoses Acute psychosis F23 Homicidal ideation R45.850 Cannabis use disorder, severe, dependence F12.20 Cannabis-induced psychotic disorder with delusions F12.950
[2024-08-13 20:24] VITALS: BP 108/73; PULSE 91; RESP 16; TEMP 36.4; O2SAT 97
[2024-08-13] MEDS: ARIPiprazole 10 mg Tablet PO (20:24)
[2024-08-14 06:00] VITALS: BP 109/75; PULSE 76; RESP 16; TEMP 36.3; O2SAT 99
[2024-08-14] MEDS: hyDROXYzine 25 mg Capsule 50 MG PO (13:31)
[2024-08-14 14:00] VITALS: BP 128/76; PULSE 73; RESP 17; TEMP 36.5; O2SAT 97
--- NOTE | 2024-08-14 14:36 | PC.NURSE ---
Patient's mother called and after he talked to her there was an apparent mood change. He quickly asked for medication for anxiety and said he knew nobody cared about him and that he was going to be here for 21 days. This RN explained to him that the doctor could rescind the 21 day hold whenever he wanted. Patient began talking about how everyone thinks he is crazy just because he reads The Bible and talks about God. Patient is angry that the doctor diagnosed him with schizophrenia. This RN went to talk to him in his room. He initially started off very angry and tearful, cursing a lot and stating that he didn't want to talk to anyone and it's none of your [employer] business. This nurse told him if he'd like to talk to just let staff know. However, when walking out of the room he began talking to the nurse more and this RN encouraged him to be patient, work on himself, be medication compliant, and to never use the word crazy when referring to himself because he is not crazy. Patient calmed and stated, thank you. This really helped. This RN told the patient to let staff know before he got worked up so we could talk about things and he agreed.
[2024-08-14] MEDS: nicotine 2 mg Gum BUCCAL (15:32)
--- NOTE | 2024-08-14 18:25 | P.NPUPN_ITS ---
Subjective NPU 2 Subjective: Patient presented today reporting that he is doing okay. He continues to take his medication without incident and reports being hopeful that he will be able to leave soon. He reports an openness to outpatient follow-up and is still trying to get his mind around the idea of a long-acting injectable. He denies any side effects to the medication. And we discussed further increasing the Abilify to 15 mg p.o. daily. Mental Status Exam 2 MSE Comments: This is an underweight, cachectic white male, in hospital scrubs, with limited grooming, and intense eye contact. No abnormal movements except for mild psychomotor retardation. Mostly cooperative with exam in significant distress. Speech was slightly decreased rate and volume. Occasionally having whispering towards the keny or God. Mood described as okay; affect subdued. Thought process, linear. Thought content: patient denied any suicidal or homicidal ideation, there were no delusions reported but paranoia, grandiose and some bizarre delusions noted, patient denied any auditory or visual hallucinations but appeared at times to be attending to internal stimuli. Attention, concentration, and memory appear limited but were not formally tested. He is alert and oriented to person. Insight and judgment and impulse control are impaired. Vitals/I&O/Wt Last Vital Signs Temp 97.8 F 08/14/24 19:28 Pulse 93 08/14/24 19:28 Resp 18 08/14/24 19:28 BP 145/80 08/14/24 19:28 Pulse Ox 99 08/14/24 19:28 O2 Del Method Room Air 08/14/24 19:28 Weight last 48 hrs Weight 60.781 kg Data NPU 08/06/24 05:02 08/06/24 05:02 A&P Assessment and plan (1) Acute psychosis: (2) Homicidal ideation: (3) Cannabis use disorder, severe, dependence: (4) Cannabis-induced psychotic disorder with delusions: Plan This is a 29-year-old white male who presented denying significant mental health history or treatment but does report similar episodes and marijuana use with possible sequela of being hyper christianity. The patient appears to be struggling with his strong christianity beliefs and how they intersect with his daily life and how these beliefs seem to get heightened or intensified sometimes when he smokes weed. He has a history of depression and occasional anxiety. He has a history of substance use, specifically cannabis and tobacco. 1. Consider antipsychotic. Started Abilify 5 mg p.o. daily. Increased to 10 mg p.o. daily. And switched to bedtime. Switch to 15 mg and consider long- acting injectable. 2. Continue every 15 minute checks for safety. 3. Encourage individual, group and milieu therapies. 4. Obtain collateral information on what his baseline actually is. 5. Encourage sober living treatment after discharge at the highest level of care to which he is willing to commit. 6. Filed for 21-day hold. Hearing today at 1315. 21-day hold granted Involuntary Hold Information 2 96 Hour Hold: 96 Hour Involuntary Admission: Yes 96 Hour Hold Ending Date: 08/12/24 96 Hour Hold Ending Time: 10:00 Attestations NPU 2 Medical Necessity Statement*: Inpatient hospitalization is medically necessary and the clinically appropriate intervention at this time. We will monitor medication to make changes as indicated.His likely length of stay 3-5 days. Coding Level of Care Code Acute Code for [facility] Diagnoses Acute psychosis F23 Homicidal ideation R45.850 Cannabis use disorder, severe, dependence F12.20 Cannabis-induced psychotic disorder with delusions F12.950
[2024-08-14 19:28] VITALS: BP 145/80; PULSE 93; RESP 18; TEMP 36.6; O2SAT 99
[2024-08-14] MEDS: ARIPiprazole 10 mg Tablet 15 MG PO (20:10)
[2024-08-14] MEDS: trazodone 50 mg Tablet PO (20:10)
[2024-08-15 06:00] VITALS: BP 118/75; PULSE 98; RESP 18; TEMP 36.5; O2SAT 98; BMI 17.6
[2024-08-15] MEDS: hyDROXYzine 25 mg Capsule 50 MG PO ×2 (08:17→18:03)
[2024-08-15 14:00] VITALS: BP 126/88; PULSE 88; RESP 18; TEMP 36.9; O2SAT 98
[2024-08-15] MEDS: nicotine 2 mg Gum BUCCAL (14:38)
--- NOTE | 2024-08-15 19:04 | W.PM.NPUPNS ---
Subjective NPU Subjective: Patient presented today reporting that he is doing a little better. He was engaging and appearing less per staff report and direct observation. He initiated a conversation about the long-acting injectable and the impact it could have on him leaving as well as having to take medication. We discussed the 2 formulations of Abilify Maintena and Abilify Asimtufii giving him 1 and 2-month options. He reported having spoken with his mother and that she helped him think about this in a different way. He denied any side effects of the medication we discussed the tentative plan to get him discharged by the end of the week. Mental Status Exam MSE Comments: This is an underweight, cachectic white male, in hospital scrubs, with limited grooming, and intense eye contact. No abnormal movements except for mild psychomotor retardation. Mostly cooperative with exam in mild distress. Speech was slightly decreased rate and volume. Mood described as okay; affect less subdued. Thought process, linear. Thought content: patient denied any suicidal or homicidal ideation, there were no delusions reported but less paranoia, grandiose or bizarre delusions noted, patient denied any auditory or visual hallucinations. Attention, concentration, and memory appear to be improving but were not formally tested. He is alert and oriented to person and place. Insight and judgment appear to be improving impulse control is limited but improving. Vitals/I&O/Wt Last Vital Signs Temp 98.4 F 08/15/24 14:00 Pulse 88 08/15/24 14:00 Resp 18 08/15/24 14:00 BP 126/88 08/15/24 14:00 Pulse Ox 98 08/15/24 14:00 O2 Del Method Room Air 08/15/24 06:00 08/15/24 08/15/24 08/15/24 06:59 14:59 22:59 Intake Total 600 / 600 Balance 600 / 600 Weight last 48 hrs Weight 60.781 kg Data NPU 08/06/24 05:02 08/06/24 05:02 A&P Assessment and plan (1) Acute psychosis: (2) Homicidal ideation: (3) Cannabis use disorder, severe, dependence: (4) Cannabis-induced psychotic disorder with delusions: Plan This is a 29-year-old white male who presented denying significant mental health history or treatment but does report similar episodes and marijuana use with possible sequela of being hyper episcopalian. The patient appears to be struggling with his strong episcopalian beliefs and how they intersect with his daily life and how these beliefs seem to get heightened or intensified sometimes when he smokes weed. He has a history of depression and occasional anxiety. He has a history of substance use, specifically cannabis and tobacco. 1. Consider antipsychotic. Started Abilify 5 mg p.o. daily. Increased to 10 mg p.o. daily. And switched to bedtime. Switched to 15 mg and consider long-acting injectable. Start Abilify Maintena 400 mg IM. 2. Continue every 15 minute checks for safety. 3. Encourage individual, group and milieu therapies. 4. Obtain collateral information on what his baseline actually is. 5. Encourage sober living treatment after discharge at the highest level of care to which he is willing to commit. 6. Filed for 21-day hold. Hearing today at 1315. 21-day hold granted. Tentative plan for discharge by the end of the week. Involuntary Hold Information 96 Hour Hold: 96 Hour Involuntary Admission: Yes 96 Hour Hold Ending Date: 08/12/24 96 Hour Hold Ending Time: 10:00 Attestations NPU Medical Necessity Statement*: Inpatient hospitalization is medically necessary and the clinically appropriate intervention at this time. We will monitor medication to make changes as indicated.His likely length of stay 3-5 days. Coding Level of Care Code Acute Code for [facility] Fwd Diagnoses Acute psychosis F23 Homicidal ideation R45.850 Cannabis use disorder, severe, dependence F12.20 Cannabis-induced psychotic disorder with delusions F12.950
[2024-08-15] MEDS: OLANZapine 5 mg ODT PO (20:09)
[2024-08-15] MEDS: ARIPiprazole 10 mg Tablet 15 MG PO (20:09)
[2024-08-15 21:42] VITALS: BP 135/88; PULSE 74; RESP 18; TEMP 36.7; O2SAT 98
[2024-08-16 06:00] VITALS: BP 126/80; PULSE 73; RESP 15; TEMP 36.6; O2SAT 99
[2024-08-16] MEDS: hyDROXYzine 25 mg Capsule 50 MG PO (08:42)
[2024-08-16] MEDS: nicotine 2 mg Gum BUCCAL ×2 (09:25→18:24)
[2024-08-16] MEDS: ARIPiprazole Maintena 400 MG IM (09:52)
--- NOTE | 2024-08-16 10:53 | PC.NURSE ---
Abilify 400 mg IM given in RIGHT deltoid.
[2024-08-16 13:58] VITALS: BP 148/77; PULSE 103; RESP 16; TEMP 36.6; O2SAT 97
--- NOTE | 2024-08-16 19:15 | P.NPUPN_ITS ---
Subjective NPU 2 Subjective: Patient presents today reporting that he is doing okay. He continues to be quite excited about having a endpoint for this process. He reports that he has been doing okay and not having any issues with the shot. He also reports that he does not identify any clear side effects of the medication. Mental Status Exam 2 MSE Comments: This is an underweight, cachectic white male, in hospital scrubs, with limited grooming, and intense eye contact. No abnormal movements except for mild psychomotor retardation. Mostly cooperative with exam in mild distress. Speech was slightly decreased rate and volume. Mood described as okay; affect less subdued. Thought process, linear. Thought content: patient denied any suicidal or homicidal ideation, there were no delusions reported but less paranoia, grandiose or bizarre delusions noted, patient denied any auditory or visual hallucinations. Attention, concentration, and memory appear to be improving but were not formally tested. He is alert and oriented to person and place. Insight and judgment appear to be improving impulse control is limited but improving. Vitals/I&O/Wt Last Vital Signs Temp 97.4 F L 08/16/24 19:23 Pulse 94 08/16/24 19:23 Resp 18 08/16/24 19:23 BP 142/91 08/16/24 19:23 Pulse Ox 99 08/16/24 19:23 O2 Del Method Room Air 08/16/24 19:23 Weight last 48 hrs Weight 60.781 kg Data NPU 08/06/24 05:02 08/06/24 05:02 A&P Assessment and plan (1) Acute psychosis: (2) Homicidal ideation: (3) Cannabis use disorder, severe, dependence: (4) Cannabis-induced psychotic disorder with delusions: Plan This is a 29-year-old white male who presented denying significant mental health history or treatment but does report similar episodes and marijuana use with possible sequela of being hyper sabianism. The patient appears to be struggling with his strong sabianism beliefs and how they intersect with his daily life and how these beliefs seem to get heightened or intensified sometimes when he smokes weed. He has a history of depression and occasional anxiety. He has a history of substance use, specifically cannabis and tobacco. 1. Consider antipsychotic. Started Abilify 5 mg p.o. daily. Increased to 10 mg p.o. daily. And switched to bedtime. Switched to 15 mg and consider long- acting injectable. Started Abilify Maintena 400 mg IM. Will discontinue oral Abilify and 13 days. 2. Continue every 15 minute checks for safety. 3. Encourage individual, group and milieu therapies. 4. Obtain collateral information on what his baseline actually is. 5. Encourage sober living treatment after discharge at the highest level of care to which he is willing to commit. 6. Filed for 21-day hold. Hearing today at 1315. 21-day hold granted. Plan for discharge by the end of the week. Involuntary Hold Information 2 96 Hour Hold: 96 Hour Involuntary Admission: Yes 96 Hour Hold Ending Date: 08/12/24 96 Hour Hold Ending Time: 10:00 Attestations NPU 2 Medical Necessity Statement*: Inpatient hospitalization is medically necessary and the clinically appropriate intervention at this time. We will monitor medication to make changes as indicated.His likely length of stay 3-5 days. Coding Level of Care Code Acute Code for [facility] Diagnoses Acute psychosis F23 Homicidal ideation R45.850 Cannabis use disorder, severe, dependence F12.20 Cannabis-induced psychotic disorder with delusions F12.950
[2024-08-16 19:23] VITALS: BP 142/91; PULSE 94; RESP 18; TEMP 36.3; O2SAT 99
[2024-08-16] MEDS: trazodone 50 mg Tablet PO (20:01)
[2024-08-16] MEDS: ARIPiprazole 10 mg Tablet 15 MG PO (20:01)
[2024-08-17 06:00] VITALS: BP 117/77; PULSE 77; RESP 18; TEMP 36.6; O2SAT 98
--- NOTE | 2024-08-17 10:17 | PC.NURSE ---
pt walking up and down hallway. while speaking with this line assembly utility worker pt states he is afraid if he preaches to the wrong people it would keep him here longer or if he just kept silent then he could be released Sat. pt was speaking about his parents and that he needed to be care givers to them , that his dad was a disabled Vet and has arthritis in his knee an he is trying to have his rating for his disabilty increased so he doesn't want to heal him by praying over him but he doesn't want him in pain so he has asked him if he could pray over him and he has said yes and so he has done this. pt then started telling this line assembly utility worker that he has had a vision seeing himself preaching with thousands of orthodox followers behind him as he is leading them to god and the rapture.
[2024-08-17 14:00] VITALS: BP 137/87; PULSE 103; RESP 17; TEMP 36.8; O2SAT 98
[2024-08-17] MEDS: nicotine 2 mg Gum BUCCAL (15:56)
--- NOTE | 2024-08-17 16:04 | W.PM.NPUPNS ---
Subjective NPU Subjective: Patient presented today reporting that he is doing fine. We discussed the likelihood of discharge in the next 48 hours which made him very happy. We discussed working with the social work team to get discharge appointments in place. He denies any issues with the injection and we discussed that he would be discontinuing the oral Abilify in 12 days. Mental Status Exam MSE Comments: This is an underweight, cachectic white male, in hospital scrubs, with limited grooming, and intense eye contact. No abnormal movements except for mild psychomotor retardation. Mostly cooperative with exam in mild distress. Speech was slightly decreased rate and volume. Mood described as okay; affect less subdued. Thought process, linear. Thought content: patient denied any suicidal or homicidal ideation, there were no delusions reported but no paranoia, grandiose or bizarre delusions noted, patient denied any auditory or visual hallucinations. Attention, concentration, and memory appear to be improving but were not formally tested. He is alert and oriented to person and place. Insight and judgment appear to be improving impulse control is limited but improving. Vitals/I&O/Wt Last Vital Signs Temp 97.8 F 08/17/24 06:00 Pulse 77 08/17/24 06:00 Resp 18 08/17/24 06:00 BP 117/77 08/17/24 06:00 Pulse Ox 98 08/17/24 06:00 O2 Del Method Room Air 08/17/24 06:00 Data NPU 08/06/24 05:02 08/06/24 05:02 A&P Assessment and plan (1) Acute psychosis: (2) Homicidal ideation: (3) Cannabis use disorder, severe, dependence: (4) Cannabis-induced psychotic disorder with delusions: Plan This is a 29-year-old white male who presented denying significant mental health history or treatment but does report similar episodes and marijuana use with possible sequela of being hyper denominational. The patient appears to be struggling with his strong denominational beliefs and how they intersect with his daily life and how these beliefs seem to get heightened or intensified sometimes when he smokes weed. He has a history of depression and occasional anxiety. He has a history of substance use, specifically cannabis and tobacco. 1. Consider antipsychotic. Started Abilify 5 mg p.o. daily. Increased to 10 mg p.o. daily. And switched to bedtime. Switched to 15 mg and consider long-acting injectable. Started Abilify Maintena 400 mg IM. Will discontinue oral Abilify and 12 days. 2. Continue every 15 minute checks for safety. 3. Encourage individual, group and milieu therapies. 4. Obtain collateral information on what his baseline actually is. 5. Encourage sober living treatment after discharge at the highest level of care to which he is willing to commit. 6. Filed for 21-day hold. Hearing today at 1315. 21-day hold granted. Plan for discharge by the end of the week. Involuntary Hold Information 96 Hour Hold: 96 Hour Involuntary Admission: Yes 96 Hour Hold Ending Date: 08/12/24 96 Hour Hold Ending Time: 10:00 Attestations NPU Medical Necessity Statement*: Inpatient hospitalization is medically necessary and the clinically appropriate intervention at this time. We will monitor medication to make changes as indicated.His likely length of stay 1-3 days. Coding Level of Care Code Acute Code for [facility] Fwd Diagnoses Acute psychosis F23 Homicidal ideation R45.850 Cannabis use disorder, severe, dependence F12.20 Cannabis-induced psychotic disorder with delusions F12.950
[2024-08-17 19:23] VITALS: BP 120/83; PULSE 106; RESP 18; TEMP 36.6; O2SAT 99
[2024-08-17] MEDS: ARIPiprazole 10 mg Tablet 15 MG PO (19:50)
[2024-08-17] MEDS: trazodone 50 mg Tablet PO (22:23)
[2024-08-18 06:00] VITALS: BP 114/78; PULSE 99; RESP 16; TEMP 36.6; O2SAT 98
[2024-08-18 14:00] VITALS: BP 142/86; PULSE 97; RESP 16; TEMP 36.6; O2SAT 98
[2024-08-18] MEDS: nicotine 2 mg Gum BUCCAL (15:01)
--- NOTE | 2024-08-18 15:57 | P.NPUPN_ITS ---
Subjective NPU 2 Subjective: Patient presented today reporting that things are going fine. He is excited about the prospect of discharge tomorrow. We reviewed his oral medication only being prescribed for a about 10 more doses. We discussed how he can go about getting the injections. He denied any side effects to the medication. Mental Status Exam 2 MSE Comments: This is an underweight, cachectic white male, in hospital scrubs, with limited grooming, and intense eye contact. No abnormal movements except for mild psychomotor retardation. Mostly cooperative with exam in mild distress. Speech was slightly decreased rate and volume. Mood described as okay; affect less subdued. Thought process, linear. Thought content: patient denied any suicidal or homicidal ideation, there were no delusions reported but no paranoia, grandiose or bizarre delusions noted, patient denied any auditory or visual hallucinations. Attention, concentration, and memory appear to be improving but were not formally tested. He is alert and oriented to person and place. Insight and judgment appear to be improving impulse control is limited but improving. Vitals/I&O/Wt Last Vital Signs Temp 98 F 08/18/24 14:00 Pulse 97 08/18/24 14:00 Resp 16 08/18/24 14:00 BP 142/86 08/18/24 14:00 Pulse Ox 98 08/18/24 14:00 O2 Del Method Room Air 08/18/24 14:00 Data NPU 08/06/24 05:02 08/06/24 05:02 A&P Assessment and plan (1) Acute psychosis: (2) Homicidal ideation: (3) Cannabis use disorder, severe, dependence: (4) Cannabis-induced psychotic disorder with delusions: Plan This is a 29-year-old white male who presented denying significant mental health history or treatment but does report similar episodes and marijuana use with possible sequela of being hyper latter-day. The patient appears to be struggling with his strong latter-day beliefs and how they intersect with his daily life and how these beliefs seem to get heightened or intensified sometimes when he smokes weed. He has a history of depression and occasional anxiety. He has a history of substance use, specifically cannabis and tobacco. 1. Consider antipsychotic. Started Abilify 5 mg p.o. daily. Increased to 10 mg p.o. daily. And switched to bedtime. Switched to 15 mg and consider long- acting injectable. Started Abilify Maintena 400 mg IM. Will discontinue oral Abilify and 11 days. 2. Continue every 15 minute checks for safety. 3. Encourage individual, group and milieu therapies. 4. Obtain collateral information on what his baseline actually is. 5. Encourage sober living treatment after discharge at the highest level of care to which he is willing to commit. 6. Filed for 21-day hold. Hearing today at 1315. 21-day hold granted. Plan for discharge tomorrow. Involuntary Hold Information 2 96 Hour Hold: 96 Hour Involuntary Admission: Yes 96 Hour Hold Ending Date: 08/12/24 96 Hour Hold Ending Time: 10:00 Attestations NPU 2 Medical Necessity Statement*: Inpatient hospitalization is medically necessary and the clinically appropriate intervention at this time. We will monitor medication to make changes as indicated.His likely length of stay 1 day. Coding Level of Care Code Acute Code for [facility] Fwd Diagnoses Acute psychosis F23 Homicidal ideation R45.850 Cannabis use disorder, severe, dependence F12.20 Cannabis-induced psychotic disorder with delusions F12.950
[2024-08-18 19:11] VITALS: BP 121/83; PULSE 102; RESP 18; TEMP 36.7; O2SAT 98
[2024-08-18] MEDS: ARIPiprazole 10 mg Tablet 15 MG PO (20:21)
[2024-08-18] MEDS: trazodone 50 mg Tablet PO (20:21)
[2024-08-19 06:00] VITALS: BP 187/70; PULSE 81; RESP 18; TEMP 36.4; O2SAT 99
[2024-08-19] MEDS: nicotine 2 mg Gum BUCCAL (08:09)
--- NOTE | 2024-08-19 08:10 | W.PM.NPUDCS ---
Diagnoses at Discharge Discharge Diagnosis (1) Acute psychosis: Status: Acute (2) Homicidal ideation: Status: Acute (3) Cannabis use disorder, severe, dependence: Status: Acute (4) Cannabis-induced psychotic disorder with delusions: Status: Acute Reason for Visit Reason for Visit: 96 Involuntary Hold Information 96 Hour Hold: 96 Hour Involuntary Admission: Yes 96 Hour Hold Ending Date: 08/12/24 96 Hour Hold Ending Time: 10:00 Mental Status Exam MSE Comments: This is an underweight, cachectic white male, in hospital scrubs, with limited grooming, and intense eye contact. No abnormal movements except for mild psychomotor retardation. Mostly cooperative with exam in mild distress. Speech was slightly decreased rate and volume. Mood described as okay; affect less subdued. Thought process, linear. Thought content: patient denied any suicidal or homicidal ideation, there were no delusions reported but no paranoia, grandiose or bizarre delusions noted, patient denied any auditory or visual hallucinations. Attention, concentration, and memory appear to be improving but were not formally tested. He is alert and oriented to person and place. Insight and judgment appear to be improving impulse control is limited but improving. Discharge Data Studies Completed and Pending: Laboratory Results WBC 6.75 10^3/uL (3.2 9-11.43) 08/06/24 05:02 RBC 4.55 10^6/uL (3.8 5-5.65) 08/06/24 05:02 Hgb 14.30 g/dL (11.27 -16.99) 08/06/24 05:02 Hct 40.2 % (37-53) 08/06/24 05:02 MCV 88.4 fl (82-101) 08/06/24 05:02 MCH 31.4 pg (27-33) 08/06/24 05:02 MCHC 35.6 g/dL (30-55) 08/06/24 05:02 RDW 12.0 % (12.1-15.1 ) L 08/06/24 05:02 Plt Count 275 10^3/cmm (157 -399) 08/06/24 05:02 MPV 9.4 fL (7.4-10.4) 08/06/24 05:02 Neut % (Auto) 78.2 % 08/06/24 05:02 Lymph % (Auto) 11.9 % 08/06/24 05:02 [place] % (Auto) 8.3 % 08/06/24 05:02 Eos % (Auto) 0.1 % 08/06/24 05:02 Baso % (Auto) 1.2 % 08/06/24 05:02 Neut # (Auto) 5.28 10^3/uL (1.8 -7.7) 08/06/24 05:02 Lymph # (Auto) 0.8 10^3/uL (0.8- 4.8) 08/06/24 05:02 [place]asper # (Auto) 0.6 10^3/uL (0.2- 0.9) 08/06/24 05:02 Eos # (Auto) 0.0 10^3/uL (0.0- 0.8) 08/06/24 05:02 Baso # (Auto) 0.1 10^3/uL (0.0- 0.1) 08/06/24 05:02 Nucleated RBC % (a uto) 0 % 08/06/24 05:02 Nucleated RBCs # 0.0 /100WBC 08/06/24 05:02 Sodium 138 mmol/L (136-1 45) 08/06/24 05:02 Potassium 3.4 mmol/L (3.5-5 .1) L 08/06/24 05:02 Chloride 102 mmol/L (98-10 7) 08/06/24 05:02 Carbon Dioxide 22 mmol/L (22-29) 08/06/24 05:02 Anion Gap 17.4 (5-19) 08/06/24 05:02 BUN 12 mg/dL (6-20) 08/06/24 05:02 Creatinine 0.8 mg/dL (0.7-1. 2) 08/06/24 05:02 GFR Calculation 113.5 mL/min (90- 130) 08/06/24 05:02 Glucose 128 mg/dL (65-115 ) H 08/06/24 05:02 Calculated Osmolal ity 287 mOsm/kg (285- 295) 08/06/24 05:02 Calcium 8.8 mg/dL (8.5-10 .5) 08/06/24 05:02 Total Bilirubin 1.5 mg/dL (0.15-1 .2) H 08/06/24 05:02 AST 47 U/L (0-40) H 08/06/24 05:02 ALT 22 U/L (0-41) 08/06/24 05:02 Alkaline Phosphata se 52 U/L (40-130) 08/06/24 05:02 Total Protein 6.8 g/dL (6.6-8.7 ) 08/06/24 05:02 Albumin 4.6 g/dL (3.5-5.2 ) 08/06/24 05:02 Globulin 2.2 g/dL (1.3-4.6 ) 08/06/24 05:02 Urine Color Yellow (Yellow) 08/06/24 06:20 Urine Appearance Clear (CLEAR) 08/06/24 06:20 Urine pH 6.5 (5-7) 08/06/24 06:20 Ur Specific Gravit y 1.006 (1.005-1.0 30) 08/06/24 06:20 Urine Protein Negative (Negati ve) 08/06/24 06:20 Urine Glucose (UA) Negative (Normal ) 08/06/24 06:20 Urine Ketones Negative (Negati ve) 08/06/24 06:20 Urine Blood Negative (Negati ve) 08/06/24 06:20 Urine Nitrate Negative (Negati ve) 08/06/24 06:20 Urine Bilirubin Negative (Negati ve) 08/06/24 06:20 Urine Urobilinogen 0.2 mg/dL (Negati ve) 08/06/24 06:20 Ur Leukocyte Sania ase Negative (Negati ve) 08/06/24 06:20 Amorphous Sediment Not Reportable 08/06/24 06:20 Salicylates 0.5 mg/dL (3-10) L 08/06/24 05:02 Urine Opiates Scre en Negative ng/mL (N egative) 08/06/24 06:20 Acetaminophen < 5.0 ug/mL (10-3 0) L 08/06/24 05:02 Ur Barbiturates Sc reen Negative ng/mL (N egative) 08/06/24 06:20 Ur Phencyclidine S crn Negative ng/mL (N egative) 08/06/24 06:20 Ur Amphetamines Sc reen Negative ng/mL (N egative) 08/06/24 06:20 U Benzodiazepines Scrn Negative ng/mL (N egative) 08/06/24 06:20 Urine Cocaine Scre en Negative ng/mL (N egative) 08/06/24 06:20 U Marijuana (THC) Screen Positive ng/mL (N egative) H 08/06/24 06:20 Ethyl Alcohol < 10 mg/dL (0-10) 08/06/24 05:02 Vitals: Last Vital Signs Temp 97.6 F 08/19/24 06:00 Pulse 81 08/19/24 06:00 Resp 18 08/19/24 06:00 BP 187/70 08/19/24 06:00 Pulse Ox 99 08/19/24 06:00 O2 Del Method Room Air 08/19/24 06:00 Discharge Plan Discharge Patient Disposition: Home Condition: Stable Prescriptions: New trazodone 50 mg Tablet 50 mg PO BEDTIME PRN (Reason: Sleep) 30 Days Qty: 30 1RF hydroxyzine pamoate 25 mg Capsule 50 mg PO Q6H PRN (Reason: Anxiety) 30 Days Qty: 120 1RF aripiprazole 10 mg Tablet 15 mg PO BEDTIME 10 Days Qty: 10 0RF Abilify Maintena 400 mg suspension,extended rel recon 400 mg IM Q28D Qty: 1 2RF Rx Instructions: Next injection 09/13/2024. Then as directed. No Action No Known Home Medications Discharge Orders: Discharge Order (Routine); Ordered 08/19/24 Ordered By: Deon Rodríguez Referrals: [facility] [Outside] - 08/25/24 7:30 am (Intake appointment with Kimberly 08/25/24 @ 7:30 am. ) Caryn Chanel FNP [Nurse Practitioner] - Discharge Diet: Regular Discharge Activity: Resume usual activity Patient Instructions: How to Stop Smoking (DC), Altered Mental Status (ED), Opioid Safety Discharge Attestations NPU Time Spent in Discharge Care*: less than 30 min Specific Discharge Activities: Specific discharge activities: educating patient, discussing with manager of case/social workers/dc planners, documenting/other paperwork and evaluating patient/reviewing data Coding Level of Care Code Acute Code for Chg Fwd Diagnoses Acute psychosis F23 Homicidal ideation R45.850 Cannabis use disorder, severe, dependence F12.20 Cannabis-induced psychotic disorder with delusions F12.950
[2024-08-19 09:07] VITALS: BP 187/70; PULSE 81; RESP 18; TEMP 36.4; O2SAT 99
== END 2024-08-19 10:33 | disposition home or self-care (01) | DRG 897 ==
LOC: ER 05:54 → NP 10:21
PROVIDERS: Emergency Medicine; Admitting Provider Psychiatry & Neurology Psychiatry; Emergency Provider Family Medicine; Visit Provider Psychiatry & Neurology Psychiatry
DX: F12.250 Cannabis dependence with psychotic disorder with delusions (principal); Z68.1 Body mass index [BMI] 19.9 or less, adult; R45.1 Restlessness and agitation; F17.210 Nicotine dependence, cigarettes, uncomplicated; R45.850 Homicidal ideations; R63.6 Underweight
CPT/HCPCS: 80053; 80306; 80307; 81003; 81015; 85025; 96372; 97150; 97165; 99285; J7030; Q0162